=== PATIENT | female | born 1965 | race Caucasian/White ===

== ENCOUNTER 2020-12-13 17:08 | Emergency (ER) | payer MEDICARE ==
[~2020-12-13] VITALS: Ht 167.6 cm; Wt 68.5 kg
[~2020-12-13 17:08] MED LIST: PROZAC20 MG; XANAX1 MG PO
[2020-12-13] MEDS ORDERED: KETOROLAC TROMETHAMINE 60 MG/2 ML VIAL IM ONE (17:45)
[2020-12-13] MEDS ORDERED: CYCLOBENZAPRINE5 MG PO (19:07)
== END 2020-12-13 19:13 | disposition home or self-care (01) ==
LOC: ER 18:10
DX: M54.5 Low back pain (principal); F32.9 Major depressive disorder, single episode, unspecified
CPT/HCPCS: 72100; 99283; J1885

== ENCOUNTER → 2020-12-26 | Day surgery (SDC) | payer MEDICARE ==
[~2020-12-26] VITALS: Ht 167.6 cm; Wt 68.5 kg
[~2020-12-26] MED LIST changes: +BUPIVACAINE 0.5%/EPI 30 ML SDV INJ ONE; +CELECOXIB 100 MG CAP PO SCH; +CYCLOBENZAPRINE5 MG PO; +DEXAMETHASONE SOD PHOS INJ 4 MG/ML VIAL ONE; +EPHEDRINE SULFATE INJ 50 MG/ML VIAL ONE; +FENTANYL CITRATE/PF 100MCG/2 ML INJ IV ONE; +GABAPENTIN 100 MG CAP PO SCH; +HYDROCODON-ACE1 EA11 PO; +HYDROCODONE/APAP 10MG-325MG TAB PO PRN; +HYDROCODONE/APAP 7.5MG-325MG 1 EA TAB PO PRN; +KETOROLAC TROMETHAMINE 30 MG/ML VIAL IV ONE; +KETOROLAC TROMETHAMINE 30 MG/ML VIAL IV PRN; +KETOROLAC TROMETHAMINE 30 MG/ML VIAL ONE; +KETOROLAC TROMETHAMINE 60 MG/2 ML VIAL IM ONE; +LIDOCAINE HCL 2% LOCAL INJ 5 ML SDV VIAL INJ ONE; +MAGNESIUM HYDROXIDE 30 ML UDC PO PRN; +MORPHINE SULFATE INJ 2 MG/ML SYR IV PRN; +MORPHINE SULFATE INJ 4 MG/ML INJ 1ML IV PRN; +MORPHINE SULFATE INJ 4 MG/ML INJ 1ML IV STA; +OMEPRAZOLE 20 MG CAP PO ONE; +OMEPRAZOLE 20 MG CAP PO SCH; +ONDANSETRON HCL INJ 2MG/ML 2ML 2 MG/ML VIAL IV PRN; +ONDANSETRON HCL INJ 2MG/ML 2ML 2 MG/ML VIAL IV STA; +ONDANSETRON HCL INJ 2MG/ML 2ML 2 MG/ML VIAL ONE; +PROPOFOL IV EMULSION 10 MG/ML 20 ML VIAL ONE; +SENNOSIDES 8.6 MG TAB PO SCH; +SEVOFLURANE INHAL SOLN 250 ML PEN BTL ONE; +SODIUM CHLORIDE 0.9% 1000ML 1,000 ML IV SCH; +TYLENOL # 31 EA PO
[2020-12-26 10:03] LABS: BASOPHILS % 0.3 % (0.0-1.0); EOSINOPHILS # (AUTO) 0.2 (0.0-0.4); EOSINOPHILS % 1.8 % (0.0-6.0); HEMATOCRIT 35.6 % (34.2-44.1); HEMOGLOBIN 11.3 g/dL (12.0-16.0); LYMPHOCYTES # (AUTO) 2.1 (1.0-3.2); LYMPHOCYTES % 23.4 % (18.0-39.1); MEAN CORPUSCULAR HEMOGLOBIN 29.2 pg (28-32); MEAN CORPUSCULAR HGB CONC 31.7 g/dL (31-35); MONOCYTES # (AUTO) 0.6 (0.2-0.8); MONOCYTES % 6.5 % (4.4-11.3); NEUTROPHILS % 67.7 % (38.7-80.0); PLATELET COUNT 299 x10e3/uL (140-360); RED BLOOD COUNT 3.87 x10e6/uL (3.6-5.1)
[2020-12-26 10:16] LABS: INR 1.02
[2020-12-26 10:25] LABS: ALANINE AMINOTRANSFERASE 19 IU/L (0-55); ALBUMIN 3.9 g/dL (3.5-5.0); ALBUMIN/GLOBULIN RATIO 1.2 (0.8-2.0); ALKALINE PHOSPHATASE 64 IU/L (40-150); ANION GAP 13.2 mmol/L (8-16); BLOOD UREA NITROGEN 19 mg/dL (7-26); BUN/CREATININE RATIO 20 (6-25); CALCIUM 9.2 mg/dL (8.4-10.2); CARBON DIOXIDE 25 mmol/L (22-29); CHLORIDE 105 mmol/L (98-107); CREATININE, SERUM 0.94 mg/dL (0.57-1.11); EST GLOMERULAR FILTRATION RATE > 60 ML/MIN (60-); GLUCOSE 102 mg/dL (74-118); POTASSIUM 4.2 mmol/L (3.5-5.1); SODIUM 139 mmol/L (136-145)
[2020-12-26 17:32] VITALS: BP 141/62
== END | disposition home or self-care (01) ==
LOC: ER 08:12 → ERHOLD 10:00 → UNDOADMIN 10:00 → ER 13:37 → OR 13:55
PROVIDERS: ATTEND Specialist
DX: S82.851A Displaced trimalleolar fracture of right lower leg, initial encounter for closed fracture (principal); Y99.8 Other external cause status; F31.9 Bipolar disorder, unspecified; Z20.822 Contact with and (suspected) exposure to COVID-19; W00.0XXA Fall on same level due to ice and snow, initial encounter
CPT/HCPCS: 27822; 35226; 36415; 73590; 73610; 73630; 76000; 80053; 85025; 85610; 85730; 99284; C1713 ×6; J1885 ×2; J2270; J2405; J3010; U0002; J1100; J2001

== ENCOUNTER 2022-01-17 10:17 | Emergency (ER) | payer MEDICARE ==
[~2022-01-17] VITALS: Ht 167.6 cm; Wt 68.5 kg
[~2022-01-17 10:17] MED LIST changes: -BUPIVACAINE 0.5%/EPI 30 ML SDV INJ ONE; -CELECOXIB 100 MG CAP PO SCH; -DEXAMETHASONE SOD PHOS INJ 4 MG/ML VIAL ONE; -EPHEDRINE SULFATE INJ 50 MG/ML VIAL ONE; -FENTANYL CITRATE/PF 100MCG/2 ML INJ IV ONE; -GABAPENTIN 100 MG CAP PO SCH; -HYDROCODONE/APAP 10MG-325MG TAB PO PRN; -HYDROCODONE/APAP 7.5MG-325MG 1 EA TAB PO PRN; -KETOROLAC TROMETHAMINE 30 MG/ML VIAL IV ONE; -KETOROLAC TROMETHAMINE 30 MG/ML VIAL IV PRN; -KETOROLAC TROMETHAMINE 30 MG/ML VIAL ONE; -KETOROLAC TROMETHAMINE 60 MG/2 ML VIAL IM ONE; -LIDOCAINE HCL 2% LOCAL INJ 5 ML SDV VIAL INJ ONE; -MAGNESIUM HYDROXIDE 30 ML UDC PO PRN; -MORPHINE SULFATE INJ 2 MG/ML SYR IV PRN; -MORPHINE SULFATE INJ 4 MG/ML INJ 1ML IV PRN; -MORPHINE SULFATE INJ 4 MG/ML INJ 1ML IV STA; -OMEPRAZOLE 20 MG CAP PO ONE; -OMEPRAZOLE 20 MG CAP PO SCH; -ONDANSETRON HCL INJ 2MG/ML 2ML 2 MG/ML VIAL IV PRN; -ONDANSETRON HCL INJ 2MG/ML 2ML 2 MG/ML VIAL IV STA; -ONDANSETRON HCL INJ 2MG/ML 2ML 2 MG/ML VIAL ONE; -PROPOFOL IV EMULSION 10 MG/ML 20 ML VIAL ONE; -SENNOSIDES 8.6 MG TAB PO SCH; -SEVOFLURANE INHAL SOLN 250 ML PEN BTL ONE; -SODIUM CHLORIDE 0.9% 1000ML 1,000 ML IV SCH
[2022-01-17] MEDS ORDERED: ONDANSETRON HCL INJ 2MG/ML 2ML 2 MG/ML VIAL IV STA (10:53)
[2022-01-17] MEDS ORDERED: KETOROLAC TROMETHAMINE 30 MG/ML VIAL IV STA (10:53)
[2022-01-17] MEDS ORDERED: LACTATED RINGER'S 1,000 ML INJ ONE (11:00)
[2022-01-17 11:13] LABS: BASOPHILS % 0.2 % (0.0-1.0); EOSINOPHILS # (AUTO) 0.1 (0.0-0.4); EOSINOPHILS % 0.7 % (0.0-6.0); HEMATOCRIT 36.5 % (34.2-44.1); HEMOGLOBIN 12.2 g/dL (12.0-16.0); LYMPHOCYTES # (AUTO) 1.8 (1.0-3.2); LYMPHOCYTES % 18.4 % (18.0-39.1); MEAN CORPUSCULAR HEMOGLOBIN 29.4 pg (28-32); MEAN CORPUSCULAR HGB CONC 33.4 g/dL (31-35); MONOCYTES % 10.7 % (4.4-11.3); NEUTROPHILS # (AUTO) 6.7 (2.1-6.9); NEUTROPHILS % 69.4 % (38.7-80.0); PLATELET COUNT 250 x10e3/uL (140-360); RED BLOOD COUNT 4.15 x10e6/uL (3.6-5.1); RED CELL DISTRIBUTION WIDTH 12.9 % (11.7-14.4)
[2022-01-17 11:39] LABS: ALBUMIN 3.1 g/dL (3.5-5.0); ALBUMIN/GLOBULIN RATIO 0.7 (0.8-2.0); ANION GAP 11.7 mmol/L (8-16); CALCIUM 9.8 mg/dL (8.4-10.2); CREATININE, SERUM 1.12 mg/dL (0.57-1.11); POTASSIUM 3.7 mmol/L (3.5-5.1)
[2022-01-17 11:43] LABS: CLARITY,URINE CLEAR (CLEAR); COLOR,URINE YELLOW (YELLOW); KETONES,URINE 1+ (NEGATIVE); LEUKOCYTE ESTERASE ,URINE TRACE (NEGATIVE); NITRITE,URINE NEGATIVE (NEGATIVE); PROTEIN,URINE DIPSTICK 1+ (NEGATIVE); URINE UROBILINOGEN 1 mg/dL (0.2 - 1)
[2022-01-17 11:49] LABS: BACTERIA,URINE RARE /HPF; EPITHELIAL CELLS,URINE FEW /LPF
[2022-01-17 12:01] LABS: THYROID STIMULATING HORMONE 0.783 uIU/mL (0.350-4.940)
[2022-01-17 12:33] LABS: AMPHETAMINES SCREEN,URINE NEGATIVE (NEGATIVE); BENZODIAZEPINES SCREEN,URINE NEGATIVE (NEGATIVE); PHENCYCLIDINE SCREEN,URINE NEGATIVE (NEGATIVE)
[2022-01-17] MEDS ORDERED: ONDANSETRON ODT4 MG PO (12:44)
== END 2022-01-17 13:51 | disposition home or self-care (01) ==
LOC: ER 10:48
DX: R50.9 Fever, unspecified (principal); R11.2 Nausea with vomiting, unspecified; F31.9 Bipolar disorder, unspecified; Z20.822 Contact with and (suspected) exposure to COVID-19
CPT/HCPCS: 36415; 80053; 80307; 81001; 84436; 84443; 84479; 85025; 99284; J2405; J7121; U0002